=== PATIENT | female | born 1965 | race Two or more races ===

== ENCOUNTER 2016-11-18 12:49 | Emergency (ER) | payer BC, OTHER ==
[2016-11-18 12:55] VITALS: BP 129/90; PULSE 81; TEMP 98.7; BMI 28.1
--- NOTE | 2016-11-18 14:03 | PDOC ---
History of Present Illness - General Chief Complaint: Sore Throat Stated Complaint: PAIN IN MOUTH Time Seen by Provider: 11/18/16 13:33 History Source: Patient Exam Limitations: No Limitations - History of Present Illness Initial Comments: 11/18/16 13:57 Chin here with complaints of swelling and tenderness to right submandibular gland. Has suffered with salivary stones in the past and feels has same. However this episode started yesterday and with all of her Sour patch candies or tart food items but has not resolved issue. Fever, denies any dental injury, denies any runny nose or sore throat pain. Timing/Duration: unsure Severity: mild Associated Symptoms: reports: denies symptoms. denies: cough, fever/chills Past History - Travel Traveled outside of the country in the last 30 days: No Close contact w/someone who was outside of country & ill: No - Past Medical History Allergies/Adverse Reactions: Allergies Allergy/AdvReac Type Severity Reaction Status Date / Time No Known Allergies Allergy Verified 11/18/16 12:55 Home Medications: Ambulatory Orders Nifedipine [Procardia] 10 mg PO DAILY 11/20/15 HTN: Yes - Surgical History Cholecystectomy: Yes - Reproductive History (#): 6 Para: 4 Tubal Ligation: Yes (20 yrs ago) - Psycho/Social/Smoking Cessation Hx Anxiety: No Suicidal Ideation: No Smoking History: Current every day smoker Have you smoked in the past 12 months: No Number of Cigarettes Smoked Daily: 7 Information on smoking cessation initiated: Yes 'Breaking Loose' booklet given: 11/18/16 Hx Alcohol Use: Yes (SOCIAL) Drug/Substance Use Hx: No Substance Use Type: None Review of Systems - Review of Systems Able to Perform ROS?: Yes Is the patient limited Greenlandic proficient: Yes Constitutional: Yes: See HPI. No: Symptoms Reported, Chills, Fever, Malaise HEENTM: Yes: Symptoms Reported, Throat Swelling Integumentary: No: Symptoms Reported Neurological: Yes: See HPI. No: Symptoms reported, Headache All Other Systems: Reviewed and Negative *Physical Exam - Vital Signs Last Vital Signs Temp Pulse Resp BP Pulse Ox 98.7 F 81 20 129/90 97 11/18/16 12:51 11/18/16 12:51 11/18/16 12:51 11/18/16 12:51 11/18/16 12:51 - Physical Exam General Appearance: Yes: Nourished, Appropriately Dressed. No: Apparent Distress HEENT: positive: JESUS, TMs Normal, Pharynx Normal (redness, swelling or exudate) Neck: positive: Tender, Supple, Other (has tender adenopathy/swelling to submandibular area of right neck, site of past salivary stone swelling. No erythema, nonfluctuant) Respiratory/Chest: positive: Normal Breath Sounds Cardiovascular: positive: Regular Rate Gastrointestinal/Abdominal: positive: Soft. 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 NML intact, Fully Oriented, Alert, Normal Mood/ Affect, Normal Response, Motor Strength 09/18 Medical Decision Making - Medical Decision Making 11/18/16 14:41 Salivary stone swelling, we'll treat with sour/lemon *DC/Admit/Observation/Transfer Diagnosis at time of Disposition: Salivary duct stones - Discharge Dispostion Disposition: HOME Condition at time of disposition: Good Admit: No - Referrals Referrals: Matthew Bergman MD [Primary Care Provider] - - Patient Instructions Printed Discharge Instructions: Parotitis Additional Instructions: Rest, drink lots of fluids: Teas, water, soups Saltwater gargles/ keep mouth clean and rinse after each meal May use wet teabag for pain relief to area Use Tart or very sour food items to help expel stone from right salivary gland Tylenol or Motrin for fever and pain Seek dental or ENT appointment as soon as possible for evaluation of salivary swelling Followup with private physician in one to 2 days as needed Return to emergency department for worsened symptoms, fevers, swelling to face or worsened pain
== END 2016-11-18 14:10 | disposition home or self-care (01) ==
LOC: JERFT 12:49
DX: K11.5 Sialolithiasis (principal); F17.210 Nicotine dependence, cigarettes, uncomplicated; I10 Essential (primary) hypertension
CPT/HCPCS: 99281-25

== ENCOUNTER 2016-11-21 21:08 | Inpatient (IN) | payer BC, OTHER ==
[2016-11-21] MEDS ORDERED: SODIUM CHLORIDE 0.9% 500 ML INFUS.BAG IV ONE (22:07)
--- NOTE | 2016-11-21 22:07 | PDOC ---
History of Present Illness - General History Source: Patient Exam Limitations: No Limitations - History of Present Illness Initial Comments: 11/21/16 22:42 The patient is a 51 year old female, with significant past medical history HLD, who presents today complaining of right submandibular pain and swelling. The patient visited the ED 2 days ago and was told she has salivary stone. Since being discharged, the pain and swelling has increased. The submandibular pain began to radiate to the right ear. She also reports a headache that feels like pressure. The pain is so severe that she has not been able to sleep or eat for the past 2 days. She is experiencing difficulty breathing while sitting and walking. She notes that 8 months ago she was told that she had esophageal pockets and a piece of food was stuck in the pocket. She was prescribed penicillin and the pain resolved. Denies sore throat. Denies chest pain, SOB, cough. Denies fever, chills, nausea, vomiting. Allergies: none reported Surgical Hx: right bunion removal on 11/19/16. <Katya Parks - Last Filed: 11/22/16 02:00> <Maranda Quezada - Last Filed: 11/23/16 02:32> - General Chief Complaint: Pain Stated Complaint: PAIN Time Seen by Provider: 11/21/16 21:36 Past History <Katya Parks - Last Filed: 11/22/16 02:00> - Past Medical History HTN: Yes - Surgical History Cholecystectomy: Yes - Reproductive History (#): 6 Para: 4 Tubal Ligation: Yes (20 yrs ago) - Psycho/Social/Smoking Cessation Hx Anxiety: No Suicidal Ideation: No Smoking History: Never smoked Have you smoked in the past 12 months: No Number of Cigarettes Smoked Daily: 7 Information on smoking cessation initiated: No 'Breaking Loose' booklet given: 11/18/16 Hx Alcohol Use: Yes (SOCIAL) Drug/Substance Use Hx: No Substance Use Type: None <Maranda Quezada - Last Filed: 11/23/16 02:32> - Past Medical History Allergies/Adverse Reactions: Allergies Allergy/AdvReac Type Severity Reaction Status Date / Time No Known Allergies Allergy Verified 11/21/16 21:16 Home Medications: Ambulatory Orders Nifedipine [Procardia Xl] 90 mg PO DAILY 11/22/16 Protonix 40 mg PO DAILY 11/22/16 Toprol Xl 100 mg PO DAILY 11/22/16 Review of Systems - Review of Systems Able to Perform ROS?: Yes Comments:: 11/21/16 22:42 GENERAL/CONSTITUTIONAL: No fever or chills. No weakness. HEAD, EYES, EARS, NOSE AND THROAT: +submandibular pain and swelling. +right ear pain. No change in vision. No ear discharge. No sore throat. CARDIOVASCULAR: No chest pain or shortness of breath. RESPIRATORY: No cough, wheezing, or hemoptysis. GASTROINTESTINAL: No nausea, vomiting, diarrhea or constipation. GENITOURINARY: No dysuria, frequency, or change in urination. MUSCULOSKELETAL: No joint or muscle swelling or pain. No neck or back pain. SKIN: No rash NEUROLOGIC: +headache. No vertigo, loss of consciousness, or change in strength/ sensation. ENDOCRINE: No increased thirst. No abnormal weight change. HEMATOLOGIC/LYMPHATIC: No anemia, easy bleeding, or history of blood clots. ALLERGIC/IMMUNOLOGIC: No hives or skin allergy. <Katya Parks - Last Filed: 11/22/16 02:00> *Physical Exam - Vital Signs Last Vital Signs Temp Pulse Resp BP Pulse Ox 98.6 F 77 18 132/83 99 11/21/16 21:13 11/21/16 21:13 11/21/16 21:13 11/21/16 21:13 11/21/16 21:13 - Physical Exam Comments: 11/21/16 22:42 GENERAL: Awake, alert, and fully oriented, in no acute distress HEAD: No signs of trauma EYES: PERRLA, EOMI, sclera anicteric, conjunctiva clear ENT: No sublingual swelling. Voice sounds normal. Auricles normal inspection, hearing grossly normal, nares patent, oropharynx clear without exudates. Moist mucosa NECK: +right sided submental swelling. Palpable 2cm x 2.5cm cystic type mass in the submental pharyngeal area. Moderate tenderness. No erythema, no redness, no warmth, no sign of infection. Normal ROM, supple, no lymphadenopathy, JVD, or masses. LUNGS: Breath sounds equal, clear to auscultation bilaterally. No wheezes, and no crackles HEART: Regular rate and rhythm, normal S1 and S2, no murmurs, rubs or gallops ABDOMEN: Soft, nontender, normoactive bowel sounds. No guarding, no rebound. No masses EXTREMITIES: Normal range of motion, no edema. No clubbing or cyanosis. No cords, erythema, or tenderness NEUROLOGICAL: Cranial nerves II through XII grossly intact. Normal speech, normal gait SKIN: Warm, Dry, normal turgor, no rashes or lesions noted. <Dallas Parksssica - Last Filed: 11/22/16 02:00> - Vital Signs Last Vital Signs Temp Pulse Resp BP Pulse Ox 98.6 F 77 18 132/83 99 11/21/16 21:13 11/21/16 21:13 11/21/16 21:13 11/21/16 21:13 11/21/16 21:13 <Maranda Quezada - Last Filed: 11/23/16 02:32> ED Treatment Course - LABORATORY CBC & Chemistry Diagram: 11/21/16 22:24 11/21/16 22:24 - ADDITIONAL ORDERS Additional order review: 11/21/16 22:24 RBC 4.46 MCV 89.2 MCHC 33.5 RDW 12.6 MPV 7.1 L Neutrophils % 68.7 Lymphocytes % 24.1 D Monocytes % 5.1 Eosinophils % 1.3 Basophils % 0.8 - RADIOLOGY Radiograph Interpretation: 11/22/16 02:00 EXAM: CT soft tissue neck with contrast INDICATION: Right-sided submental swelling DATE OF SERVICE: 2016-11-22 00:39:44.0 COMPARISON: none FINDINGS: Visualized intracranial and intraorbital contents are normal. There is mild edema of the right submandibular gland. Salivary duct is dilated to 4 mm secondary to 4 mm proximal stone. No other stones identified. The other salivary glands and thyroid gland are normal. No retropharyngeal and parapharyngeal space. The lung apices are clear. IMPRESSION: Right submandibular gland edema which dilation of the salivary duct secondary to a 4 mm proximal ductal stone. THIS DOCUMENT HAS BEEN ELECTRONICALLY SIGNED Lenin Scott MD - Medications Given in the ED: ED Medications Discontinued Medications Generic Name Dose Route Start Last Admin Trade Name Freq PRN Reason Stop Dose Admin Ketorolac Tromethamine 30 mg 11/21/16 22:09 11/21/16 22:27 Toradol Injection - IVPUSH 11/21/16 22:10 30 mg ONCE ONE Administration Sodium Chloride 1,000 ml 11/21/16 22:07 11/21/16 22:27 Normal Saline - IV 11/21/16 22:08 1,000 ml ONCE ONE Administration <Katya Parks - Last Filed: 11/22/16 02:00> - LABORATORY CBC & Chemistry Diagram: 11/22/16 08:12 11/22/16 08:12 <Maranda Quezada - Last Filed: 11/23/16 02:32> Medical Decision Making - Medical Decision Making 11/21/16 23:06 CBC is normal Pt has a submental salivary stone. However she is unable to swallow solids and she is having difficulty breathing so she will be admitted to the hospital for ENT evaluation in the AM and for antibiotics for a likely infected and inflamed salivary duct and for IV hydration <Maranda Quezada - Last Filed: 11/23/16 02:32> *DC/Admit/Observation/Transfer - Attestations Scribe Attestion: 11/21/16 22:47 Documentation prepared by LOUIE Thomson, acting as medical lab specialist for Maranda Quezada MD. <Katya Parks - Last Filed: 11/22/16 02:00> - Discharge Dispostion Admit: Yes <Maranda Quezada - Last Filed: 11/23/16 02:32> Diagnosis at time of Disposition: Salivary duct stones, Inability to swallow
[2016-11-21] MEDS ORDERED: KETOROLAC TROMETHAMINE 30 MG/1 ML VIAL IVPUSH ONE (22:09)
[2016-11-21] MEDS ORDERED: KETOROLAC TROMETHAMINE 30 MG/1 ML VIAL ONE (22:12)
[2016-11-21 22:36] LABS: BASOPHIL 0.8 % (0-2.0); EOSINOPHIL 1.3 % (0-4.5); MCH 29.9 pg (25.7-33.7); MCHC 33.5 g/dl (32.0-36.0); MEAN CELL VOLUME 89.2 fl (80-96); MEAN PLT VOLUME 7.1 fl (7.5-11.1); NEUTROPHILS 68.7 % (42.8-82.8); PLATELET COUNT 309 K/MM3 (134-434); RDW 12.6 % (11.6-15.6); WHITE BLOOD COUNT 10.9 K/mm3 (4.0-10.0)
[2016-11-21 23:19] LABS: ALBUMIN 3.8 g/dl (3.4-5.0); ALK PHOS 108 U/L (45-117); ANION GAP 10 (8-16); BILIRUBIN,TOTAL 0.3 mg/dL (0.2-1.0); CALCIUM 8.9 mg/dL (8.5-10.1); CO2 27 mmol/L (21-32); CREATININE 0.9 mg/dL (0.55-1.02); GLUCOSE,RANDOM 100 mg/dL (74-106); SGOT/AST 10 U/L (15-37); SGPT/ALT 14 U/L (12-78); TOT PROT 6.9 g/dl (6.4-8.2)
[2016-11-22] MEDS ORDERED: DEXTROSE 5%-0.45% SALINE 1,000 ML IV SCH (03:00)
[2016-11-22] MEDS ORDERED: KETOROLAC TROMETHAMINE 30 MG/1 ML VIAL IVPUSH PRN (03:05)
--- NOTE | 2016-11-22 03:15 | HP ---
CHIEF COMPLAINT: Difficulty Swallowing, R- neck swelling, Pain PCP: Dr. Bergman HISTORY OF PRESENT ILLNESS: This is a 51 y/o female with a past medical history of: HTN, HLD. Who presents to the ED for the second time in 3 days for R- neck swelling, difficulty swallowing, pain, R- ear fullness, and headache x 4 days. Patient reports having dysphagia last Wednesday only able to tolerate cold foods, fruits. She reports being seen in [facility] last Wednesday d/c and now reports increased swelling and difficulty swallowing. Patient reports having similar episode last year, having a FNA of the gland- NL. Patient denies fever, chills, CP, AP, N/V/D , constipation, dysuria. ER course was notable for: (1) CT neck- Salivary duct dilated 4mm, 4mm proximal stone (2) WBC 10.9 (3) Recent Travel: None PAST MEDICAL HISTORY: HTN HLD PAST SURGICAL HISTORY: Childbirth R- Bunionectomy 11/12/16 L- Bunionectomy 2015 Social History: Smoking: Tobacco 05/20PPD x 25 yrs Alcohol: Occasional Drugs: Denies Lives with spouse, employed [employer] Family History: None Allergies No Known Allergies Allergy (Verified 11/21/16 21:16) HOME MEDICATIONS: Home Medications Medication Instructions Recorded Nifedipine [Procardia] 10 mg PO DAILY 11/20/15 Nabumetone 750 mg PO BID 11/21/16 REVIEW OF SYSTEMS CONSTITUTIONAL: Absent: fever, chills, diaphoresis, generalized weakness, malaise, loss of appetite, weight change HEENT: difficulty swallowing, R-ear pain Absent: rhinorrhea, nasal congestion, throat pain, throat swelling, mouth swelling, eye pain, visual changes NECK: R- neck swelling CARDIOVASCULAR: Absent: chest pain, syncope, palpitations, irregular heart rate, lightheadedness , peripheral edema RESPIRATORY: shortness of breath Absent: cough, dyspnea with exertion, orthopnea, wheezing, stridor, hemoptysis GASTROINTESTINAL: Absent: abdominal pain, abdominal distension, nausea, vomiting, diarrhea, constipation, melena, hematochezia GENITOURINARY: Absent: dysuria, frequency, urgency, hesitancy, hematuria, flank pain, genital pain MUSCULOSKELETAL: Absent: myalgia, arthralgia, joint swelling, back pain, neck pain SKIN: Absent: rash, itching, pallor HEMATOLOGIC/IMMUNOLOGIC: Absent: easy bleeding, easy bruising, lymphadenopathy, frequent infections ENDOCRINE: Absent: unexplained weight gain, unexplained weight loss, heat intolerance, cold intolerance NEUROLOGIC: Absent: headache, focal weakness or paresthesias, dizziness, unsteady gait, seizure, mental status changes, bladder or bowel incontinence PSYCHIATRIC: Absent: anxiety, depression, suicidal or homicidal ideation, hallucinations. PHYSICAL EXAMINATION Vital Signs - 24 hr 11/21/16 11/22/16 21:13 02:30 Temperature 98.6 F 98.9 F Pulse Rate 77 Pulse Rate [ 60 Radial] Respiratory 18 17 Rate Blood Pressure 132/83 Blood Pressure 120/88 [Arm] O2 Sat by Pulse 99 98 Oximetry (%) GENERAL: Awake, alert, and fully oriented, in no acute distress. HEAD: Normal with no signs of trauma. EYES: Pupils equal, round and reactive to light, extraocular movements intact, sclera anicteric, conjunctiva clear. No lid lag. EARS, NOSE, THROAT: Ears normal, nares patent, oropharynx clear without exudates. Dry mucous membranes, thick white coating to tongue with foul odor noted. NECK: Normal range of motion, supple, No JVD.+Right sided lymphadenopathy, R sided submental palpable mass to pharyngeal aspect with tenderness noted. LUNGS: Breath sounds equal, clear to auscultation bilaterally. No wheezes, and no crackles. No accessory muscle use. HEART: Regular rate and rhythm, normal S1 and S2 without murmur, rub or gallop. ABDOMEN: Soft, nontender, not distended, normoactive bowel sounds, no guarding, no rebound, no masses. No hepatomegaly or splenomegaly. MUSCULOSKELETAL: Normal range of motion at all joints. No bony deformities or tenderness. No CVA tenderness. UPPER EXTREMITIES: 2+ pulses, warm, well-perfused. No cyanosis. No clubbing. No peripheral edema. LOWER EXTREMITIES: 2+ pulses, warm, well-perfused. No calf tenderness. No peripheral edema. NEUROLOGICAL: Cranial nerves II-XII intact. Normal speech. Normal gait. PSYCHIATRIC: Cooperative. Good eye contact. Appropriate mood and affect. SKIN: Warm, dry, normal turgor, no rashes or lesions noted, normal capillary refill. Laboratory Results - last 24 hr 11/21/16 11/21/16 22:24 22:24 WBC 10.9 H RBC 4.46 Hgb 13.3 D Hct 39.8 MCV 89.2 MCH 29.9 MCHC 33.5 RDW 12.6 Plt Count 309 MPV 7.1 L Neutrophils % 68.7 Lymphocytes % 24.1 D Monocytes % 5.1 Eosinophils % 1.3 Basophils % 0.8 Sodium 140 Potassium 4.1 Chloride 103 Carbon Dioxide 27 Anion Gap 10 BUN 15 Creatinine 0.9 Creat Clearance w eGFR > 60 Random Glucose 100 Calcium 8.9 Total Bilirubin 0.3 D AST 10 L ALT 14 Alkaline Phosphatase 108 Total Protein 6.9 Albumin 3.8 - RADIOLOGY Radiograph Interpretation: 11/22/16 02:00 EXAM: CT soft tissue neck with contrast INDICATION: Right-sided submental swelling DATE OF SERVICE: 2016-11-22 00:39:44.0 COMPARISON: none FINDINGS: Visualized intracranial and intraorbital contents are normal. There is mild edema of the right submandibular gland. Salivary duct is dilated to 4 mm secondary to 4 mm proximal stone. No other stones identified. The other salivary glands and thyroid gland are normal. No retropharyngeal and parapharyngeal space. The lung apices are clear. IMPRESSION: Right submandibular gland edema which dilation of the salivary duct secondary to a 4 mm proximal ductal stone. THIS DOCUMENT HAS BEEN ELECTRONICALLY SIGNED Lenin Scott MD ASSESSMENT/PLAN: This is a 51 y/o female with a PMHx of: HTN, HLD. Presents to the ED with R- sided neck edema, pain, and dysphagia. Admitted to M/S Submandibular Sialadenitis, Submandibular Sialotithiasis, Dysphagia for further evaluation of their emergent condition. Plan: 1. Submandibular Sialadenitis - Likely secondary to stone vs infection vs auto immune etiology vs malignancy - CT neck- see above - Appreciate ENT evaluation - Toradol given in ED - Blood Cultures-pending - Started on Clindamycin for broad spectrum coverage - Toradol prn - Elevate HOB - CBC, BMP, TSH in am - Monitor vitals 2. Dysphagia - See above 3. Leukocytosis - Likely secondary to infection - See above 4. Hypertension - Controlled - Monitor BP - Will hold home med for now, reassess in am if tolerate pill swallowing 5. HLD - Hold med for now 2/2 Dysphagia 6. FEN - D51/2NS@83cc/hr - Replete lyte prn - NPO 7. DVT Prophylaxis - OOB - SCDs - Heparin SQ Code Status: Full Code Problem List - Problem (1) Submandibular sialoadenitis Code(s): K11.20 - SIALOADENITIS, UNSPECIFIED (2) Submandibular sialolithiasis Code(s): K11.5 - SIALOLITHIASIS (3) HTN (hypertension) Code(s): I10 - ESSENTIAL (PRIMARY) HYPERTENSION (4) HLD (hyperlipidemia) Code(s): E78.5 - HYPERLIPIDEMIA, UNSPECIFIED (5) DVT prophylaxis Code(s): LDT1862 - Visit type - Emergency Visit Emergency Visit: Yes ED Registration Date: 11/21/16 Care time: The patient presented to the Emergency Department on the above date and was hospitalized for further evaluation of their emergent condition. - New Patient This patient is new to me today: Yes Date on this admission: 11/22/16 - Critical Care Critical Care patient: No
[2016-11-22] MEDS: CLINDAMYCIN 600MG PREMIX IVPB 50 ML IVPB SCH ×3 (04:05→17:46)
[2016-11-22 05:03] VITALS: BMI 27.6
[2016-11-22 09:23] LABS: ANION GAP 8 (8-16); CALCIUM 8.9 mg/dL (8.5-10.1); CO2 25 mmol/L (21-32); GLUCOSE,RANDOM 104 mg/dL (74-106)
[2016-11-22 09:35] LABS: CREATININE 0.9 mg/dL (0.55-1.02); THYROID STIMULATING HORMONE 1.64 uIU/ml (0.358-3.74)
[2016-11-22 09:45] LABS: BASOPHIL 0.9 % (0-2.0); EOSINOPHIL 2.8 % (0-4.5); MCH 30.1 pg (25.7-33.7); MCHC 33.7 g/dl (32.0-36.0); MEAN CELL VOLUME 89.3 fl (80-96); MEAN PLT VOLUME 7.1 fl (7.5-11.1); NEUTROPHILS 62.9 % (42.8-82.8); PLATELET COUNT 295 K/MM3 (134-434); RDW 12.8 % (11.6-15.6); WHITE BLOOD COUNT 9.3 K/mm3 (4.0-10.0)
[2016-11-22] MEDS: DEXTROSE 5%-NORMAL SALINE 1,000 ML IV SCH ×2 (10:41→22:04)
[2016-11-22] MEDS: CEFAZOLIN 500 MG in DEXTROSE 5%-WATER - 50 ML IVPB SCH ×2 (11:40→17:46)
--- NOTE | 2016-11-22 11:46 | HOSP ---
Physical Examination Vital Signs: Vital Signs Temperature 98.8 F 11/22/16 10:36 Pulse Rate 60 11/22/16 10:36 Respiratory Rate 18 11/22/16 10:36 Blood Pressure 150/86 11/22/16 10:36 O2 Sat by Pulse Oximetry (%) 98 11/22/16 05:01 Findings/Remarks: Subjective: The patient was seen and examined at the bedside, she has no complaints at this time. Discussed with Dr. Narayanan: continue abx, lemon drops, warm compresses, milk the duct with massaging, IV fluids Current Medications Generic Name Dose Route Start Last Admin Trade Name Freq PRN Reason Stop Dose Admin Clindamycin Phosphate 50 mls @ 100 mls/hr 11/22/16 03:15 11/22/16 10:41 Cleocin 600 Mg Premix Ivpb - IVPB 100 mls/hr Q8H-IV DALI Administration Cefazolin Sodium 500 mg/ 50 mls @ 50 mls/30 min 11/22/16 10:00 11/22/16 11:40 Dextrose IVPB 50 mls/30 min Q8H-IV DALI Administration Dextrose/Sodium Chloride 1,000 mls @ 125 mls/hr 11/22/16 09:45 11/22/16 10:41 D5-Ns - IV 125 mls/hr ASDIR DALI Administration Ketorolac Tromethamine 30 mg 11/22/16 03:05 Toradol Injection - IVPUSH 11/27/16 03:04 Q6H PRN PAIN Nifedipine 10 mg 11/23/16 10:00 Procardia Capsule - PO DAILY DALI Non-Formulary Medication 750 mg 11/22/16 22:00 Nabumetone [Nabumetone] PO BID DALI Objective: Vital Signs Period Temp Pulse Resp BP Sys/Cosme Pulse Ox Last 24 Hr 98 F-98.9 F 60-77 17-18 120-150/77-88 98-99 Physical Exam: General: NAD, A&Ox3 HEENT: Right submandibular mass, tender. CBCD WBC 9.3 K/mm3 (4.0-10.0) 11/22/16 08:12 RBC 4.38 M/mm3 (3.60-5.2) 11/22/16 08:12 Hgb 13.2 GM/dL (10.7-15.3) 11/22/16 08:12 Hct 39.1 % (32.4-45.2) 11/22/16 08:12 MCV 89.3 fl (80-96) 11/22/16 08:12 MCHC 33.7 g/dl (32.0-36.0) 11/22/16 08:12 RDW 12.8 % (11.6-15.6) 11/22/16 08:12 Plt Count 295 K/MM3 (134-434) 11/22/16 08:12 MPV 7.1 fl (7.5-11.1) L 11/22/16 08:12 CMP Sodium 140 mmol/L (136-145) 11/22/16 08:12 Potassium 3.9 mmol/L (3.5-5.1) 11/22/16 08:12 Chloride 107 mmol/L (98-107) 11/22/16 08:12 Carbon Dioxide 25 mmol/L (21-32) 11/22/16 08:12 Anion Gap 8 (8-16) 11/22/16 08:12 BUN 12 mg/dL (7-18) 11/22/16 08:12 Creatinine 0.9 mg/dL (0.55-1.02) 11/22/16 08:12 Creat Clearance w eGFR > 60 (>60) 11/21/16 22:24 Random Glucose 104 mg/dL (74-106) 11/22/16 08:12 Calcium 8.9 mg/dL (8.5-10.1) 11/22/16 08:12 Total Bilirubin 0.3 mg/dL (0.2-1.0) D 11/21/16 22:24 AST 10 U/L (15-37) L 11/21/16 22:24 ALT 14 U/L (12-78) 11/21/16 22:24 Alkaline Phosphatase 108 U/L (45-117) 11/21/16 22:24 Total Protein 6.9 g/dl (6.4-8.2) 11/21/16 22:24 Albumin 3.8 g/dl (3.4-5.0) 11/21/16 22:24 Assessment: This is a 51 year old female with PMHx of HTN, hyperlipidemia who presented to the ED with right sided neck edema and pain and was found to have submandibular sialadenitis Plan: 1) Submandibular Sialadenitis - CT neck preliminary read with: Salivary duct is dilated to 4 mm secondary to 4 mm proximal stone - Discussed with ENT who will evaluate the patient tomorrow - Warm soaks, lemon drops, milking of the duct - Pain management - IV abx per ENT - IV fluids - F/u ENT consult 2) HTN - Continue Procardia XL - Continue Toprol XL 3) Dysphagia - 2/2 salivary gland swelling - Once swelling improves, will restart diet 4) F/E/N: - IV fluids - NPO 5) Prophylaxis: - OOB ambulating - Heparin 5,000u sq tid 6) Dispo: - Once condition improves CODE STATUS: FULL CODE Labs: CBC, BMP 11/22/16 08:12 11/22/16 08:12
[2016-11-22] MEDS ORDERED: PROTONIX 40 MG PO SCH (12:15)
[2016-11-22] MEDS ORDERED: TOPROL 100 MG PO SCH (12:15)
[2016-11-22] MEDS: NIFEdipine E.R. 90 MG TABLET (FP) PO SCH (13:47)
[2016-11-22] MEDS: HEPARIN NA (PORCINE) 5,000 UNITS/ML 1ML VIAL SQ SCH ×2 (14:37→22:06)
[2016-11-22] MEDS ORDERED: PT OWN MED DRAWER 7, Y5N ONE (17:45)
[2016-11-22] MEDS ORDERED: NABUMETONE 750 MG PO SCH (22:00)
[2016-11-23] MEDS ORDERED: PT OWN MED DRAWER 7, Y5N ONE ×3 (02:03→09:26)
[2016-11-23] MEDS: CLINDAMYCIN 600MG PREMIX IVPB 50 ML IVPB SCH ×2 (02:07→09:30)
[2016-11-23] MEDS: CEFAZOLIN 500 MG in DEXTROSE 5%-WATER - 50 ML IVPB SCH ×2 (02:44→09:30)
[2016-11-23] MEDS: DEXTROSE 5%-NORMAL SALINE 1,000 ML IV SCH ×2 (05:53→09:31)
[2016-11-23] MEDS: HEPARIN NA (PORCINE) 5,000 UNITS/ML 1ML VIAL SQ SCH (05:56)
[2016-11-23 06:23] VITALS: PULSE 69
[2016-11-23 09:23] VITALS: BP 136/75; TEMP 98.7
[2016-11-23] MEDS: NIFEdipine E.R. 90 MG TABLET (FP) PO SCH (09:30)
[2016-11-23] MEDS ORDERED: NIFEdipine 10 MG CAPSULE (FP) PO SCH (10:00)
[2016-11-23] MEDS ORDERED: PANTOPRAZOLE 40 MG TABLET (FP) PO SCH (10:00)
[2016-11-23] MEDS ORDERED: METOPROLOL SUCCINATE 100 MG TAB.SR.24H (FP) PO SCH (10:00)
--- NOTE | 2016-11-23 10:38 | EKG ---
Test Reason : Blood Pressure : / mmHG Vent. Rate : 062 BPM Atrial Rate : 062 BPM P-R Int : 154 ms QRS Dur : 080 ms QT Int : 422 ms P-R-T Axes : 035 037 038 degrees QTc Int : 428 ms NORMAL SINUS RHYTHM POSSIBLE LEFT ATRIAL ENLARGEMENT BORDERLINE ECG WHEN COMPARED WITH ECG OF 16-AUG-2013 10:13, NO SIGNIFICANT CHANGE WAS FOUND Confirmed by APPLE HERRERA MD ([id number]) on 11/23/2016 10:38:24 AM Referred By: Confirmed By:APPLE HERRERA MD
--- NOTE | 2016-11-23 12:31 | CON.ENT ---
Consult Consult Specialty:: ENT Reason for Consultation:: stone - History of Present Illness Chief Complaint: neck pain History of Present Illness: 51F with right neck/throat pain that initially happened ~1 month ago and then again starting up last week. Was admitted and CT showed a proximal stone causing right submandibular sialadenitis. She has been on IV antibiotics and fluids since admission yesterday. She feels minimal improvement. - History Source History Provided By: Patient Limitations to Obtaining History: No Limitations - Past Medical History ...LMP: 07/15/13 ...: No - Alcohol/Substance Use Hx Alcohol Use: Yes (SOCIAL) - Smoking History Smoking history: Never smoked Have you smoked in the past 12 months: No Aproximately how many cigarettes per day: 7 Home Medications - Allergies Allergies/Adverse Reactions: Allergies Allergy/AdvReac Type Severity Reaction Status Date / Time No Known Allergies Allergy Verified 11/21/16 21:16 - Home Medications Home Medications: Ambulatory Orders Nifedipine [Procardia Xl] 90 mg PO DAILY 11/22/16 Protonix 40 mg PO DAILY 11/22/16 Toprol Xl 100 mg PO DAILY 11/22/16 Ciprofloxacin [Cipro -] 500 mg PO Q12H #16 tablet 11/23/16 Clindamycin HCl 450 mg PO TID #25 capsule 11/23/16 Review of Systems - Review of Systems Constitutional: denies: Fever HENT: reports: Difficult Swallowing Physical Exam-ENT Vital Signs: Vital Signs Temperature 98.7 F 11/23/16 09:22 Pulse Rate 69 11/23/16 09:22 Respiratory Rate 18 11/23/16 09:22 Blood Pressure 136/75 11/23/16 09:22 O2 Sat by Pulse Oximetry (%) 96 11/23/16 09:00 Constitutional: Yes: Well Nourished, Anxious Head: Yes: WNL Face: Yes: WNL Eyes: Yes: WNL Nose: Yes: WNL Nasal Passage: Yes: WNL Oral/Pharynx: Yes: WNL, Other (post o/p clear. FOM soft, flat. limited exam given discomfort. There is no stone visibly lodged at opening of duct. There is some fullness ~2cm back along the duct that could be a stone, but difficult to assess. Unable to clearly express any secretions with bimanual milking given pt discomfort.) Outer Ear: Yes: WNL Ear Canal: Yes: Cerumen Neck: Yes: Other (Right SMG enlarged, tender versus left. There is no induration or erythema of the skin. No fluctuance.) Neurological: Yes: Other (CN3-7,11,12 intact, symmetrical) Imaging - Results Cat Scan: Report Reviewed, Image Reviewed, Other (My review suggests a proximal stone and also a stone mid-way along the duct.) Problem List - Problems (1) Submandibular sialolithiasis Assessment/Plan: R SMG Sialolithiasis with Sialoadenitis - Aggressive hydration, IV antibiotics (usually give Augmentin PO for outpatients with this), warm compresses, massage, and lemon drops/sialogogues. - Hopefully the stone will dislodge. As it is not lodged at the opening of praveen's duct, I cannot access it bedside. If she does not improve, would recommend evaluation by Dr. Adalgisa Dean at [facility] for possible sialadenoscopy for a minimally invasive approach (though usually under anesthesia) to remove the stone. Other options if these fail would be to remove the submandibular gland, though endoscopy is generally preferred if a candidate. Usually, though, these are calmed down medically before such procedures are done. - Disc with patient and primary team. - No airway swelling radiographically nor concern clinically. Endoscopy defered. Code(s): K11.5 - SIALOLITHIASIS (2) Thyroid nodule Assessment/Plan: Noted incidentally on CT Agree with ultrasound recommendation and if suspicious or over 1 cm, will need FNA. I am happy to help coordinate this as an outpatient, or through primary team/ doctor if prefered. Code(s): E04.1 - NONTOXIC SINGLE THYROID NODULE
--- NOTE | 2016-11-23 13:21 | DS ---
Physical Examination Vital Signs: Vital Signs Temperature 98.7 F 11/23/16 09:22 Pulse Rate 69 11/23/16 09:22 Respiratory Rate 18 11/23/16 09:22 Blood Pressure 136/75 11/23/16 09:22 O2 Sat by Pulse Oximetry (%) 96 11/23/16 09:00 Labs: CBC, BMP 11/22/16 08:12 11/22/16 08:12 Discharge Summary Reason For Visit: INABILITY TO SWALLOW, SALIVARY DUCT STONE Current Active Problems DVT prophylaxis (Acute) HLD (hyperlipidemia) (Acute) HTN (hypertension) (Acute) Inability to swallow (Acute) Salivary duct stones (Acute) Submandibular sialoadenitis (Acute) Submandibular sialolithiasis (Acute) Thyroid nodule (Acute) Condition: Improved - Instructions Diet, Activity, Other Instructions: Please return to the ED with new, persistent, or worsening symptoms. Please follow-up with providers as indicated. Please follow-up with Dr. Adalgisa Dean (Otolarygology) at [facility]07[facility]16 at 9[facility]30am [facility] [address] Continue hydration, warm compresses, massage to the affected area (towards the mouth). Continue to suck on lemon drops or kim Please follow-up with Dr. Wlison (ENT) within 1 week to schedule an outpatient ultrasound to assess your left lobe 1.3cm nodule in your thyroid. Referrals: Matthew Bergman MD [Primary Care Provider] - 1 Week Robert Wilson MD [Staff Physician] - 1 Week Disposition: HOME - Home Medications Comprehensive Discharge Medication List: Ambulatory Orders Nifedipine [Procardia Xl] 90 mg PO DAILY 11/22/16 Protonix 40 mg PO DAILY 11/22/16 Toprol Xl 100 mg PO DAILY 11/22/16 Ciprofloxacin [Cipro -] 500 mg PO Q12H #16 tablet 11/23/16 Clindamycin HCl 450 mg PO TID #25 capsule 11/23/16
== END 2016-11-23 13:28 | disposition home or self-care (01) | DRG 156 ==
LOC: JER 21:08 → JERBED 11-22 02:38 → J5S 11-22 03:32
PROVIDERS: ADMIT Internal Medicine; ATTEND Registered Nurse
DX: K11.5 Sialolithiasis (principal); K11.20 Sialoadenitis, unspecified; H92.01 Otalgia, right ear; R51 Headache; R13.19 Other dysphagia; I10 Essential (primary) hypertension; E78.5 Hyperlipidemia, unspecified; Z87.891 Personal history of nicotine dependence; D72.829 Elevated white blood cell count, unspecified; E04.1 Nontoxic single thyroid nodule
CPT/HCPCS: 36415; 70491-TC; 71020-TC; 80048; 80053; 84443; 85025; 85610; 86850; 86900; 86901; 87040; 93005; 93010; 99284-25; J1644

== ENCOUNTER 2018-06-21 11:36 | Day surgery (SDC) | payer BC ==
--- NOTE | 2018-06-21 08:01 | HP ---
Satellite [facility] - Chief Complaint Chief Complaint: right knee pain - Past Medical History Allergies/Adverse Reactions: Allergies Allergy/AdvReac Type Severity Reaction Status Date / Time No Known Allergies Allergy Verified 11/21/16 21:16 ...LMP: 07/15/13 - Current Medications Current Medications: Home Medications Medication Instructions Recorded Nifedipine [Procardia Xl] 90 mg PO DAILY 11/22/16 Cholecalciferol (Vitamin D3) 2,000 unit PO DAILY 06/06/18 [Vitamin D] Hydralazine HCl 50 mg PO BID 06/06/18 Multivit with Calcium,Iron,Min 1 each PO DAILY 06/06/18 [One Daily Women's] Nabumetone [Relafen -] 500 mg PO DAILY PRN 06/06/18 [place]-3 Fatty Acids/Fish Oil [Fish 1 each PO DAILY 06/06/18 Oil 1,000 mg Capsule] Satellite Physical Exam - Physical Examination General Appearance: Well Nourished, Well Developed, Alert & Oriented x3 ENT: Clear Lung: Normal air movement Heart: Regular rate & rhythm Extremities: Other (right knee- + swelling, + ttp laterally, decr rom, nvi xrays show grade 4 lateral compartment djd) Neurological: Intact, Alert, Oriented Satellite Impression/Plan - Impression/Plan Impression: right knee lateral djd Operative Procedure: right lateral parisa ukr Date to be Performed: 06/21/18
[~2018-06-21 11:36] MED LIST: CEFAZOLIN 2 GM in DEXTROSE 5%-WATER - 50 ML IVPB ONE; CELECOXIB 200 MG CAPSULE PO ONE; GABAPENTIN 300 MG CAPSULE (FP) PO ONE; ROPIVICAINE 0.2%/MORPH PF/KETOROLAC - 51ML DISP.SYRINGE IA ONE; TRANEXAMIC ACID 1000 MG/10 ML VIAL IVPUSH ONE; oxyCODONE HCL 10 MG SUSTAINED ACTING TABLET PO ONE
[2018-06-21 12:30] VITALS: BMI 28.9
[2018-06-21] MEDS ORDERED: THROMBIN (BOVINE) 5,000 UNIT VIAL TP ONE ×2 (12:40→14:47)
[2018-06-21] MEDS ORDERED: ceFAZolin SODIUM 1 GM VIAL ONE ×2 (12:42→14:12)
[2018-06-21] MEDS ORDERED: MAG HYDROX/AL HYDROX/SIMETH 30 ML UNIT-DOSE CUP PO PRN (13:24)
[2018-06-21] MEDS ORDERED: ONDANSETRON 4 MG/2 ML VIAL IVPUSH PRN (13:24)
[2018-06-21] MEDS ORDERED: GELATIN, ABSORBABLE 100 EACH SPONGE TP ONE (13:29)
[2018-06-21] MEDS ORDERED: LACTATED RINGERS SOLUTION 1,000 ML IV SCH (13:30)
[2018-06-21] MEDS ORDERED: DEXAMETHASONE SOD PHOSPHATE/PF 10 MG/ML SDV ONE (13:40)
[2018-06-21] MEDS ORDERED: MIDAZOLAM HCL 2 MG/2 ML SINGLE DOSE VIAL ONE (13:40)
[2018-06-21] MEDS ORDERED: BUPIVACAINE HCL/PF (5 MG/ML) 30 ML VIAL IJ ONE (13:41)
[2018-06-21] MEDS ORDERED: PROPOFOL 20 ML ONE (14:16)
--- NOTE | 2018-06-21 15:56 | OP ---
Operative Note - Note: Operative Date: 06/21/18 (ria) Pre-Operative Diagnosis: right knee lateral djd Operation: right lateral parisa ukr Post-Operative Diagnosis: Same as Pre-op Surgeon: Aquiles Liao Digital Photographic Printer: Blair Cronin) Anesthesiologist/CLOTH SHEARER: Katty Zhou Anesthesia: Spinal, Local Specimens Removed: bone fragments Estimated Blood Loss (mls): 100 Operative Report Dictated: Yes
[2018-06-21] MEDS ORDERED: ACETAMINOPHEN 1000 MG/100 ML VIAL (NON FORMULARY) IVPB ONE ×2 (16:09→16:20)
[2018-06-21] MEDS ORDERED: oxyCODONE HCL 5 MG TABLET PO PRN (16:09)
[2018-06-21] MEDS: hydrALAZINE HCL 50 MG TABLET (FP) PO SCH (21:06)
[2018-06-21] MEDS: SENNOSIDES/DOCUSATE COMBO (SENNA PLUS) TABLET (UD) PO SCH (21:06)
[2018-06-21] MEDS: oxyCODONE HCL 10 MG SUSTAINED ACTING TABLET PO SCH (21:06)
[2018-06-21] MEDS: oxyCODONE HCL 5 MG TABLET PO PRN (21:10)
[2018-06-21] MEDS: CEFAZOLIN 1 GM/D5W 1 GRAM/50 ML BAG IVPB SCH (21:12)
[2018-06-22] MEDS: CEFAZOLIN 1 GM/D5W 1 GRAM/50 ML BAG IVPB SCH (05:54)
[2018-06-22 06:31] VITALS: BP 136/69; PULSE 61; TEMP 98.4
[2018-06-22] MEDS ORDERED: ASPIRIN 325 MG TABLET PO SCH (08:00)
--- NOTE | 2018-06-22 08:11 | PN ---
Progress Note (short form) - Note Progress Note: Post op day#1.S/p Right knee PRASAD plasty under spinal anesthesia with Adductor canal block uneventful.Patient stable and has some pain for which she is on medication.No any anesthesia related problem.Patient Dc from the anesthesia care.
--- NOTE | 2018-06-22 08:26 | PN ---
Progress Note (short form) - Note Progress Note: Ortho Pt seen and examined s/p right lateral parisa ukr pod #1 Selected Entries 06/22/18 05:00 Temperature 98.4 F Pulse Rate 61 Respiratory 19 Rate Blood Pressure 136/69 Dressing c/d/i, calf soft, nt rom 0-60, nvi a/p PT dvt ppx pain control d/c home today f/u in 1 week
--- NOTE | 2018-06-22 08:27 | DS ---
Physical Examination Vital Signs: Vital Signs Temperature 98.4 F 06/22/18 05:00 Pulse Rate 61 06/22/18 05:00 Respiratory Rate 19 06/22/18 05:00 Blood Pressure 136/69 06/22/18 05:00 O2 Sat by Pulse Oximetry (%) 97 06/22/18 06:30 Discharge Summary Reason For Visit: OSTEOARTHRITIS Procedures: Principal: right lateral parisa ukr Hospital Course: admitted for elective right lateral parisa ukr, uneventful post-op, stable for d/c Condition: Good - Instructions Diet, Activity, Other Instructions: Post-op Instructions-Partial Knee Replacement Call the office for a follow-up appointment in 1 week - [phone] Aspirin 325mg daily for 6 weeks. Pain medication was sent into your pharmacy. Apply Graduated Compression Stockings (TEDs) to both lower extremities- remove daily for hygiene ONLY Apply Sequential Compression Device (SCDs) to both Lower extremities remove for PT and hygiene ONLY Apply cold packs to affected area for 15 minutes every 2 hours. Physical Therapist will come to your home for the first 5 days. You will be set up with outpatient PT at your first post-operative visit. Patient may ambulate as tolerated-encourage self care (at least every 2-3 hours while awake) with walker or cane Maintain Aquacel (waterproof) dressing to operative wound (will be removed by surgeon at first office visit) Shower with Aquacel dressing in place-if Aquacel integrity compromised, remove and apply dry sterile dressing and notify Orthopedist. DO NOT SHOWER unless Orthopedists approves without Aquacel dressing CONTACT THE OFFICE FOR ANY CHANGE IN YOUR CONDITION (for example-fever greater than 102 degrees, excessive bleeding from operative site, purulent drainage, severe swelling or pain) GO TO THE EMERGENCY ROOM IF THERE IS A MEDICAL EMERGENCY Knee Precautions: * Keep a rolled towel under affected heel while in bed or chair (to keep knee in extension) * Keep affected leg elevated except during mealtimes * DO NOT PLACE PILLOW UNDER AFFECTED KNEE * If you have any questions, please do not hesitate to call the office - [phone]. Referrals: Blair Cronin MD [Staff Physician] - Disposition: VNS/HOME HEALTH CARE - Home Medications Comprehensive Discharge Medication List: Ambulatory Orders Nifedipine [Procardia Xl] 90 mg PO DAILY 11/22/16 Cholecalciferol (Vitamin D3) [Vitamin D3] 2,000 unit PO DAILY 06/06/18 Hydralazine HCl 50 mg PO BID 06/06/18 Multivit with Calcium,Iron,Min [One Daily Women's] 1 each PO DAILY 06/06/18 Nabumetone [Relafen -] 500 mg PO DAILY PRN 06/06/18 [place]-3 Fatty Acids/Fish Oil [Fish Oil 1,000 mg Capsule] 1 each PO DAILY Aspirin [ASA -] 325 mg PO DAILY@0800 tablet 06/21/18 Oxycodone HCl/Acetaminophen [Percocet 5-325 mg Tablet -] 1 - 2 tab PO Q6H #50 tab MDD 8 06/21/18
[2018-06-22] MEDS ORDERED: PANTOPRAZOLE 40 MG TABLET (FP) PO SCH (10:00)
[2018-06-22] MEDS ORDERED: MULTIVITAMINS (DAILY MVI) TABLET (FP) PO SCH (10:00)
[2018-06-22] MEDS ORDERED: NIFEdipine E.R. 90 MG TABLET (FP) PO SCH (10:00)
[2018-06-22] MEDS: hydrALAZINE HCL 50 MG TABLET (FP) PO SCH (10:31)
[2018-06-22] MEDS: oxyCODONE HCL 10 MG SUSTAINED ACTING TABLET PO SCH (10:32)
[2018-06-22] MEDS: SENNOSIDES/DOCUSATE COMBO (SENNA PLUS) TABLET (UD) PO SCH (10:32)
[2018-06-22] MEDS: oxyCODONE HCL 5 MG TABLET PO PRN (10:33)
--- NOTE | 2018-06-23 13:35 | SPEC ---
DATE OF OPERATION: 06/21/2018 PREOPERATIVE DIAGNOSIS: Right knee grade 4 lateral compartment osteoarthritis. POSTOPERATIVE DIAGNOSIS: Right knee grade 4 lateral compartment osteoarthritis. PROCEDURE: Right knee lateral MAKOplasty. SURGEON: Aquiles Liao MD SR. PRICING ANALYST: Mitch Dubon MD SECOND SR. PRICING ANALYST: TC Cohen ANESTHESIA: URBAN Zhou, peripheral block with deep MAC anesthesia. DRAINS: None. COMPLICATIONS: None. BLOOD LOSS: Minimal. BLOOD GIVEN: None. FLUID REPLACEMENT: 1000 mL. HISTORY: This patient is a 53-year-old female with a preoperative diagnosis of severe, debilitating right knee pain with grade 4 osteoarthritis of the lateral compartment. After understanding the potential risks, complications, alternatives, benefits to surgery versus nonsurgical treatment, the patient elected to undergo this procedure. DESCRIPTION OF PROCEDURE: The patient was brought to the operating room. Peripheral IV placed. IV sedation given. Received spinal anesthesia and an adductor canal block as well as deep MAC sedation. She got 2 g of IV Ancef. She was positioned in the supine position. The right lower extremity was prepped and draped in the usual sterile fashion. The case was begun by making a lateral incision with a No. 15 scalpel blade lateral to the patella. Subcutaneous hemostasis was achieved with a Bovie cautery. Dissection was done down through the lateral retinaculum. An arthrotomy was performed. Synovial fluid was evacuated. The area was washed out. The distal lateral femur was exposed. There was some synovitis, which was cauterized with Bovie cautery. The proximal lateral tibia was also exposed. Subperiosteal dissection was done medially and laterally. Care was taken not to disrupt the patella tendon insertion or the tendon itself. The MCKAYLA robot calibration checkpoints were placed in the distal lateral femur and the proximal tibia. Next, the calibration was done with the robot and the sensors. The proximal femoral and distal tibial arrays were placed in standard fashion with the Steinmann pins. The leg was put through concentric circles. Calibration was done then additional calibration was done with over 40 points of calibration using first the green guide and then the blue guide of multiple bony landmarks of the right knee joint. Once this was done, we put the leg through a range of motion. This particular patient had 5 degrees of excessive valgus, so we took some of the pressure off trying to get her to about 1-2 degrees of valgus. She also had a 5-degree extension access, which we also tried to eliminate. We captured multiple checkpoints at different degrees of flexion, 0 degrees, 15 degrees, 30 degrees, 45 degrees, 60 degrees, 75 degrees, 90 degrees, 105 degrees, and 120 degrees. I was happy with the tension graft of tightness in both flexion and extension and overall was quite well balanced. Next, we brought in the robot, calibrated it again, and using the articulated arm with first the saw blade and then the bur, I did the appropriate resection of the distal femur diseased articular surface as well as the proximal tibia both the lateral compartment. We also drilled the and peg holes, washed it out. We removed what was left of the lateral meniscus and any overhanging pieces of cartilage with the rongeur. We washed it out again. It looked good. There were no peaks of bone. I then put in the trial implants, which was a No. 3 femur, No. 2 tibia with an 8-mm polyethylene. It still seemed a little loose especially with a little bit of hyperextension. Therefore, it was trialed again with a No. 9-mm polyethylene, and this was much better and was quite stable in both varus and valgus. It seemed to be in neutral alignment, and it eliminated the hyperextension deformity. Got full range of motion from 0-degree extension to well past 105 degrees of flexion. Overall, looked quite good. Leg length was quite good. Eliminated the valgus deformity. Next, the trial implants were removed. The area was copiously irrigated and washed out. The leg was elevated, exsanguinated with an Esmarch bandage. Tourniquet inflated to 275 mmHg. Gelfoam and thrombin were used for hemostasis and then we mixed 2 bags of Simplex cement. When we got to the appropriate amount of hardening that we precoated the undersurface of the tibial tray and the femoral component. First, we put in the femur, knocked it into place with the impaction, removed the excess cement with the curved curettes. Did the same for the tibia. Put in a No. 8 size polyethylene, compressed it, removed the excess cement, and overall looked quite good. The patient had except range of motion with no varus or valgus deformity in full extension and no hyperextension. Once the cement was dry, I removed the 8-mm trial implant, irrigated the knee, looked around for any other pieces of aberrant cement. There were none. The knee was irrigated and washed out again, dried, and I put an actual 9-mm polyethylene tray. Again, leg length stability in varus and valgus was also tested. It was quite stable. It was in about neutral and no hyperextension. Overall, it looked quite good. The area was irrigated and washed out again. Closure was done with No. 1 TiCron in the lateral parapatellar retinacular arthrotomy incision. Deep dermal layer was closed with 2-0 Vicryl, and final skin reapproximated was done with the 3-0 subcuticular running Monocryl stitch. The area was then washed and dried, covered with SwiftSet glue and Steri-Strips, 4 x 4's, Webril, and El bandage. Tourniquet was taken down after total tourniquet time of only about 20 minutes. The total operative time was about 1 hour. There were no complications during the course. The patient tolerated the procedure quite well and was brought to the regular recovery room in stable condition. MITCH DUBON M.D. [id number]
== END 2018-06-22 13:04 | disposition home health service (06) ==
LOC: FASUSAT 11:36 → FASU 11:36 → FM/S 16:53 → FASUSAT 06-22 13:04
PROVIDERS: ATTEND Orthopaedic Surgery
PROC: 8E0YXBZ Computer Assisted Procedure of Lower Extremity (ICD-10-PCS; 2018-06-21)
PROC: 8E0Y0CZ Robotic Assisted Procedure of Lower Extremity, Open Approach (ICD-10-PCS; 2018-06-21)
PROC: 0SRC0M9 Replacement of Right Knee Joint with Lateral Unicondylar Synthetic Substitute, Cemented, Open Approach (ICD-10-PCS; principal; 2018-06-21 14:34)
DX: M17.11 Unilateral primary osteoarthritis, right knee (principal)
CPT/HCPCS: 20985; 27446; C1776; S2900; 73560-TC-RT-FY; 94760; 97116-GP; 97162-GP; J0131

== ENCOUNTER 2019-05-17 14:13 | Emergency (ER) | payer BC ==
[2019-05-17 14:29] VITALS: BP 130/78; PULSE 72; TEMP 98.2; BMI 26.5
--- NOTE | 2019-05-17 14:56 | PDOC ---
History of Present Illness - General Chief Complaint: Bone Injury Stated Complaint: LT FINGER FX Time Seen by Provider: 05/17/19 14:33 History Source: Patient Exam Limitations: Clinical Condition - History of Present Illness Initial Comments: 05/17/19 14:53 Patient with no significant past medical history presented with complaint of pain to dorsal aspect of the left thumb and hand status post trip last night and bracing herself to left hand. Patient reported increased pain to left thumb when she makes a fist. Report pain radiating up left wrist. Denies weakness to hand. Patient did not take anything for pain. Reported swelling to left thumb. Denies any other symptoms Occurred: reports: yesterday Pain Location: reports: upper extremity (left thumb and hand) Past History - Past Medical History Allergies/Adverse Reactions: Allergies Allergy/AdvReac Type Severity Reaction Status Date / Time No Known Allergies Allergy Verified 05/17/19 14:34 Home Medications: Ambulatory Orders Nifedipine [Procardia Xl] 90 mg PO DAILY 11/22/16 Cholecalciferol (Vitamin D3) [Vitamin D3] 2,000 unit PO DAILY 06/06/18 Hydralazine HCl 50 mg PO BID 06/06/18 Multivit with Calcium,Iron,Min [One Daily Women's] 1 each PO DAILY 06/06/18 Nabumetone [Relafen -] 500 mg PO DAILY PRN 06/06/18 [place]-3 Fatty Acids/Fish Oil [Fish Oil 1,000 mg Capsule] 1 each PO DAILY Aspirin [ASA -] 325 mg PO DAILY@0800 tablet 06/21/18 Oxycodone HCl/Acetaminophen [Percocet 5-325 mg Tablet -] 1 - 2 tab PO Q6H #50 tab MDD 8 06/21/18 Ibuprofen 600 mg PO Q8H PRN #20 tablet 05/17/19 Anemia: No Asthma: No Cancer: No Cardiac Disorders: No CVA: No COPD: No CHF: No Dementia: No Diabetes: No GI Disorders: Yes (HOME REMEDIES) Disorders: No HTN: Yes Hypercholesterolemia: No Liver Disease: No Seizures: No Thyroid Disease: No - Surgical History Abdominal Surgery: No Appendectomy: No Cardiac Surgery: No Cholecystectomy: Yes Lung Surgery: No Neurologic Surgery: No Orthopedic Surgery: Yes (BILA BUNIONECTOMY, RT KNEE ARTHROSCOPY) - Reproductive History (#): 6 Para: 4 Tubal Ligation: Yes (20 yrs ago) - Immunization History Immunization Up to Date: No - Psycho Social/Smoking Cessation Hx Smoking History: Never smoked Have you smoked in the past 12 months: No Number of Cigarettes Smoked Daily: 4 Information on smoking cessation initiated: No 'Breaking Loose' booklet given: 11/18/16 Hx Alcohol Use: No Drug/Substance Use Hx: No Substance Use Type: None Review of Systems - Review of Systems Able to Perform ROS?: Yes Is the patient limited Kosovan proficient: No Constitutional: No: Malaise, Weakness HEENTM: No: Symptoms Reported Respiratory: No: Symptoms reported Cardiac (ROS): No: Symptoms Reported ABD/GI: No: Symptoms Reported Musculoskeletal: Yes: Symptoms Reported, See HPI, Joint Pain (left thumb), Muscle Pain (left thumb). No: Muscle Weakness Integumentary: No: Symptoms Reported Neurological: No: Symptoms reported, Numbness, Paresthesia, Tingling, Weakness All Other Systems: Reviewed and Negative *Physical Exam - Vital Signs Last Vital Signs Temp Pulse Resp BP Pulse Ox 98.2 F 72 16 130/78 100 05/17/19 14:25 05/17/19 14:25 05/17/19 14:25 05/17/19 14:25 05/17/19 14:25 - Physical Exam 05/17/19 14:55 GENERAL: Well developed, well nourished. Awake and alert. No acute distress. PULMONARY: No evidence of respiratory distress. MUSCULOSKELETAL : Mild tenderness to proximal aspect and MCP of left thumb and wrist on radial aspect. Mild swelling to left thumb. No visible deformity. SKIN: Warm and dry. Normal capillary refill. Mild swelling to left thumb NEUROLOGICAL: Alert, awake, appropriate. No motor deficits in the lower extremities. Gait is normal without ataxia. PSYCHIATRIC: Cooperative. Good eye contact. Appropriate mood and affect. General Appearance: Yes: Nourished, Appropriately Dressed. No: Apparent Distress Procedures - Splinting Splint Location: Left: Finger, Hand Pre-Proc Neuro Vasc Exam: normal Pre-Made Type: prefab wrist/hand splint Splint Type: Yes: Wrist Post-Proc Neuro Vasc Exam: normal El Bandage: 2" Sling: No Complications: No Post splint xray: No Good repositioning: Yes ED Treatment Course - RADIOLOGY Radiology Studies Ordered: Category Date Time Status FINGER(S) LEFT [RAD] Stat Radiology 05/17/19 14:35 Ordered HAND- LEFT [RAD] Stat Radiology 05/17/19 14:35 Ordered Medical Decision Making - Medical Decision Making 05/17/19 14:54 Patient with no significant past medical history presented with complaint of pain to dorsal aspect of the left thumb and hand status post trip last night and bracing herself to left hand. Patient reported increased pain to left thumb when she makes a fist. Report pain radiating up left wrist. Denies weakness to hand. Patient did not take anything for pain. Reported swelling to left thumb. Denies any other symptoms Exam significant for mild swelling to left thumb with mild tenderness to proximal phalange and MCP of left thumb. No visible deformity. No ecchymosis or bruising to left thumb or hand. Normal muscle strength to left thumb. Symptoms likely thumb and hand sprain versus less likely fracture. X-ray of left elbow and left hand ordered to rule out fracture 05/17/19 15:16 X-ray of left hand and wrist shows no acute fracture dislocation. Patient symptoms likely wrist and thumb sprain. Left wrist wrapped with El bandage. Patient placed in prefabricated wrist and hand splint for support. Ibuprofen 600 mg p.o. ordered for pain. Patient stable for discharge with advised to do hot compress as needed for swelling Motrin for pain with hand orthopedist follow -up as needed Discharge - Discharge Information Problems reviewed: Yes Clinical Impression/Diagnosis: Sprain of wrist, right Qualifiers: Encounter type: initial encounter Qualified Code(s): S63.501A - Unspecified sprain of right wrist, initial encounter Sprain of right thumb Qualifiers: Encounter type: sequela Sprain of finger site: unspecified site Qualified Code( s): S63.601S - Unspecified sprain of right thumb, sequela Condition: Stable Disposition: HOME - Admission No - Additional Discharge Information Prescriptions: Ibuprofen 600 mg PO Q8H PRN #20 tablet PRN Reason: pain - Follow up/Referral Referrals: Blair Cronin MD [Staff Physician] - - Patient Discharge Instructions Patient Printed Discharge Instructions: DI for Finger Sprain Additional Instructions: Your right hand x-ray shows no acute fracture or dislocation. Your symptoms likely finger and wrist sprain. Use provided wrist brace daily to help support wrist and fingers. Apply warm compress to finger 2-3 times a day as needed for swelling to prescribe medication as needed for pain. Follow-up referred to orthopedics if no improvement in 4 days - Post Discharge Activity
[2019-05-17] MEDS ORDERED: IBUPROFEN 600 MG TABLET (FP) PO ONE ×2 (15:13→15:18)
== END 2019-05-17 15:20 | disposition home or self-care (01) ==
LOC: JERFT 14:13
PROC: 2W3CX1Z Immobilization of Right Lower Arm using Splint (ICD-10-PCS; principal; 2019-05-17)
DX: S63.501A Unspecified sprain of right wrist, initial encounter (principal); S63.601A Unspecified sprain of right thumb, initial encounter; W01.0XXA Fall on same level from slipping, tripping and stumbling without subsequent striking against object, initial encounter; Y93.89 Activity, other specified; Y92.89 Other specified places as the place of occurrence of the external cause
CPT/HCPCS: 73130-TC-LT-FY; 73140-TC-LT-FY; 99281-25

== ENCOUNTER 2020-10-21 10:03 | Emergency (ER) | payer BC, OTHER ==
[2020-10-21 10:23] VITALS: BP 148/80; PULSE 60; TEMP 98.8; BMI 26.9
[2020-10-21] MEDS ORDERED: ONDANSETRON 4 MG/2 ML VIAL IVPUSH ONE (10:57)
[2020-10-21] MEDS ORDERED: KETOROLAC TROMETHAMINE 30 MG/1 ML VIAL IVPUSH ONE (10:57)
[2020-10-21] MEDS ORDERED: SODIUM CHLORIDE 1,000 ML IV STA (10:58)
[2020-10-21] MEDS ORDERED: KETOROLAC TROMETHAMINE 30 MG/1 ML VIAL ONE (10:58)
[2020-10-21] MEDS ORDERED: ONDANSETRON 4 MG/2 ML VIAL ONE (11:09)
[2020-10-21 11:32] LABS: EPI CELLS 15 /uL (0-25.1); HYALINE CASTS 1 /uL (0-3.1); URINE APPEARANCE CLEAR; URINE BACTERIA 47 /uL (0-1359); URINE BILIRUBIN NEGATIVE (NEGATIVE); URINE COLOR YELLOW; URINE GLUCOSE (UA) NEGATIVE (NEGATIVE); URINE KETONE TRACE (NEGATIVE); URINE LEUK ESTERASE TRACE (NEGATIVE); URINE NITRITE NEGATIVE (NEGATIVE); URINE PROTEIN NEGATIVE (NEGATIVE); URINE RBC 44 /uL (0-23.9); URINE UROBILINOGEN 0.2 mg/dL (0.2-1.0); URINE WBC 25 /uL (0-25.8)
[2020-10-21 11:36] LABS: BASO % 1.4 % (0-2.0); EOS % 2.4 % (0-4.5); HEMATOCRIT 38.7 % (32.4-45.2); HEMOGLOBIN 13.2 GM/dL (10.7-15.3); LYMPH % 29.3 % (8-40); MCH 30.2 pg (25.7-33.7); MCHC 34.1 g/dl (32.0-36.0); MEAN CELL VOLUME 88.6 fl (80-96); MEAN PLT VOLUME 7.1 fl (7.5-11.1); MONO % 4.3 % (3.8-10.2); NEUT % 62.6 % (42.8-82.8); PLATELET COUNT 347 K/MM3 (134-434); RBC 4.37 M/mm3 (3.60-5.2); RDW 13.1 % (11.6-15.6); WHITE BLOOD COUNT 7.8 K/mm3 (4.0-10.0)
[2020-10-21 11:58] LABS: ALBUMIN 3.9 g/dl (3.4-5.0); BLOOD UREA NITROGEN 11.9 mg/dL (7-18)
[2020-10-21 12:01] LABS: CREATININE 0.9 mg/dL (0.55-1.3)
== END 2020-10-21 15:29 | disposition home or self-care (01) ==
LOC: JER 10:03
PROC: 3E0333Z Introduction of Anti-inflammatory into Peripheral Vein, Percutaneous Approach (ICD-10-PCS; principal; 2020-10-21)
PROC: 3E033GC Introduction of Other Therapeutic Substance into Peripheral Vein, Percutaneous Approach (ICD-10-PCS; 2020-10-21)
PROC: 3E0337Z Introduction of Electrolytic and Water Balance Substance into Peripheral Vein, Percutaneous Approach (ICD-10-PCS; 2020-10-21)
DX: R10.9 Unspecified abdominal pain (principal)
CPT/HCPCS: 36415; 74176-TC; 80053; 81003; 85025; 87086; 99284-25